=== PATIENT | male | born 1985 ===

== ENCOUNTER 2021-10-31 10:46 | Outpatient (CLI) | payer OTHER ==
[2021-10-31 11:38] VITALS: BP 128/75
--- NOTE | 2021-10-31 11:38 | SLEEP CARE CONSULTATION ---
Information from patient questionnaire entered by Margaret Wright MA. I have reviewed and concur with the information entered by Margaret Wright MA. This document represents the service I personally performed and the decisions made by me, Melissa Santiago ARNP. History of Present Illness Service Date and Time: 10/31/2021 1046 Reason for Visit: New patient (ONSET 10/2018, NO PRIORS,) Chief Complaint: reports: Unrefreshed sleep, Snoring, Excessive daytime sleepine ss, Observed pauses in breathing, Fatigue, Frequent awakenings at night Date of Onset: 1 YEAR Usual bedtime: 900 PM Time it takes to fall asleep: 45 MIN TO AN HOUR; ringing in ears keeps him awake Snores at night: Yes Observed to quit breathing while asleep: Yes Sleeps alone due to snoring: No Number of times waking at night: 3-4 Reasons for waking at night: reports: Snoring, Other (unknown reasons). denies: Choking, Gasping for air Toss, Turn, or Twitch while sleeping: Yes Recalls having dreams: No Usually gets out of bed at: 0430 Feels refreshed in the morning: No Morning headache: No Sleepy or fatigued during the day: Yes Ever fallen asleep while driving: No Takes day naps: No Dreams during day naps: No Prior sleep studies: No Additional HPI information: I had the pleasure of seeing SHERI BARRON today regarding the possibility of him having a sleep disorder. His current complaints are excessive daytime sl eepiness, fatigue, frequent night awakenings, snoring, observed pauses in breathing and unrefreshed sleep. He states over the last 1-2 years he has been having increasing fatigue during the day. His tells him he snores loudly but she stays in the bedroom. He will also have pauses in breathing when sleeping. He saw his PCP for his hypertension who did lab work and then told him his hemoglobin level was elevated which could indicate sleep apnea with his other symptoms. 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 Patient is and lives in [place]. Have you smoked in the past 12 months: No Cigarettes per day (20/pack): 5 Years of smokin Quit date: 2013 Smoking Pack Years: 1.6 Alcohol use: Yes Alcohol amount and frequency: 1 X MONTHLY Caffeine use: Yes Caffeine amount and frequency: 2 X DAILY Family History Family history of sleep disordered breathing: No Allergies and Home Medications Known drug allergies: No Drug allergies reviewed: Yes Home medication list reviewed: Yes Allergy and home medication list: Amlodipine Lisinopril Review of Systems Weight gain over past 5 years: 20 lbs Cardiovascular: reports: high blood pressure Gastrointestinal: denies: heartburn Neurological: reports: head trauma (concussion in high school). denies: headaches Psychiatric: denies: anxiety, depression Ear/Nose/Throat: reports: wisdom teeth removed. denies: tonsillectomy Immunologic: denies: allergies to food or environment Physical Exam Vital signs obtained and entered by: Rick WRIGHT CMA AAEMMETT Blood Pressure: 128/75 (RIGHT, PULSE 64, RESP 18, ) Cuff size: wrist Heart Rate: 72 O2 Saturation: 98 (PAPER) Height: 5 ft 7 in Weight: 254 lb (UNIFORM AND BOOTS) Body Mass Index: 39.7 BMI Classification: Obese Neck circumference: 16 (INCHES) Mouth and throat: narrow oropharynx Soft palate: long Hard palate: arched Uvula: long Uvula visualization: 50% Mallampati Class II Tongue: enlarged in size with teeth wilson on lateral edges Tonsils: 1+ Neck: normal w/o lymphadenopathy or thyromegaly Heart: regular rate and rhythm Lungs: clear bilaterally Impression and Plan 1. Suspected Obstructive Sleep Apnea-Hypopnea Syndrome, as suggested by a history of loud and irregular snoring, observed cessation of breath while asleep, frequent awakening during the night, unrefreshed sleep, cognitive imp airment, and excessive daytime sleepiness. Narrow oropharynx and obesity are common predisposing factors for obstructive sleep apnea-hypopnea syndrome. I recommend proceeding to polysomnography to confirm the diagnosis and to assess severity. If the patient has significant sleep disordered breathing, a manual CPAP titration study will also be performed to find the optimal treatment pressure. I informed the patient of what the sleep studies involve and after some discussion, obtained agreement to proceed. The pathophysiology of obstructive sleep apnea-hypopnea syndrome was discussed with the patient and health risks of cardiovascular and cerebrovascular disease if not treated. Risks of drowsy driving discussed in detail and patient advised to avoid long distance driving and to pack puller at the first sign of drowsiness. Patient agreed to plan. * Schedule polysomnography +- manual CPAP titration study and return in 1-2 weeks after the study to discuss results. * Avoid long distance driving or driving when feeling sleepy. * Avoid alcohol, sedative and muscle relaxant around bedtime. * Attempt to lose weight. * Review instructions provided by trained office staff on how to prepare for the sleep study. * Return for follow-up after sleep study completed. Counseling Topics: Weight loss health impact Visit Type: In Office Time Spent with Patient (minutes): 30 Provider Statement: I spent 100% of the Face to Face Visit with the patient with greater than 50% spent counseling the patient and coordination of care.
== END 2021-10-31 10:47 | disposition home or self-care (01) ==
LOC: SC 10:46
PROVIDERS: ATTEND Nurse Practitioner Family
DX: R06.83 Snoring (principal); G47.8 Other sleep disorders; R06.81 Apnea, not elsewhere classified; G47.10 Hypersomnia, unspecified; R53.83 Other fatigue; I10 Essential (primary) hypertension; E66.9 Obesity, unspecified; Z68.39 Body mass index [BMI] 39.0-39.9, adult; Z87.891 Personal history of nicotine dependence
CPT/HCPCS: 99203; 99212

== ENCOUNTER 2021-11-10 12:28 | Outpatient (CLI) | payer OTHER | END 2021-11-10 12:29 | disposition home or self-care (01) | LOC: SC 12:28 | PROVIDERS: ATTEND Nurse Practitioner Family | DX: G47.33 Obstructive sleep apnea (adult) (pediatric) (principal); R09.02 Hypoxemia | CPT/HCPCS: 95806 ==

== ENCOUNTER 2023-02-08 18:06 | Emergency (ER) | payer OTHER ==
[2023-02-08 18:22] VITALS: BP 141/80
--- NOTE | 2023-02-08 18:42 | ED Physician Documentation ---
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 PD PAST MEDICAL HISTORY - Present Medications Home Medications: Ambulatory Orders Medication Instructions Recorded Confirmed Lisinopril [Zestril] 10 mg PO DAILY 02/08/23 02/08/23 amLODIPine [Norvasc] 5 mg PO DAILY 02/08/23 02/08/23 - Allergies Allergies/Adverse Reactions: Allergies Allergy/AdvReac Type Severity Reaction Status Date / Time No Known Drug Allergies Allergy Verified 02/08/23 18:15 PD ED PE NORMAL - Vitals Vital signs reviewed: Yes - General General: Alert and oriented X 3, No acute distress - Extremities Extremities: Other (Mild tenderness in the fifth metacarpal, no deformity or loss of saccade.) - Neuro Neuro: Alert and oriented X 3, Normal speech Results - Vitals Vitals: Vital Signs - 24 hr 02/08/23 18:14 Temperature 35.8 C L Heart Rate 82 Respiratory 16 Rate Blood Pressure 141/80 H O2 Saturation 96 Oxygen O2 Source Room air - Rads (name of study) Hairline nondisplaced fracture of the distal fifth metacarpal on hand x-ray Relevant Findings:: Final report received, EMP independent interpretation of test Procedures - Splint (location) - Minor Right hand Splint applied by: Physician Type of splint: Fiberglass, Short arm, Ulnar gutter Other: Patient tolerated well, No complications, Neurovascular intact Departure - Departure Disposition: 01 Home, Self Care Clinical Impression: Fracture of fifth metacarpal bone of right hand Condition: Good Record reviewed to determine appropriate education?: Yes Instructions: ED Fx Boxer Comments: Keep the splint on and dry, talk [place] Take CD with copy of x-rays with you to set appointment. Tylenol and/or ibuprofen for pain. Return for new or worsening symptoms. Forms: Activity restrictions
--- NOTE | 2023-02-08 18:44 | XRAY Report ---
PROCEDURE: Hand 3 View RT INDICATIONS: pain/injury TECHNIQUE: 3 views of the hand(s) acquired. COMPARISON: None. FINDINGS: Bones: Mildly displaced fracture of the fifth metacarpal neck which demonstrates mild angulation. No suspicious bony lesions. Soft tissues: No suspicious soft tissue calcifications or masses. IMPRESSION: Fifth metacarpal fracture. Reviewed by: Bi Trammell MD on 02/08/2023 6:43 PM PDT Approved by: Bi Trammell MD on 02/08/2023 6:43 PM PDT Station ID: [id number]
== END 2023-02-08 19:18 | disposition home or self-care (01) ==
LOC: ED 18:06
DX: S62.306A Unspecified fracture of fifth metacarpal bone, right hand, initial encounter for closed fracture (principal); W20.8XXA Other cause of strike by thrown, projected or falling object, initial encounter
CPT/HCPCS: 29125; 99283